=== PATIENT | male | born 1990 | race African-American/Black ===

== ENCOUNTER 2019-02-19 22:06 | Inpatient (IN) | payer OTHER ==
[~2019-02-19] VITALS: Ht 185.4 cm; Wt 93.0 kg
[2019-02-19] MEDS ORDERED: NS 1,000 ML IV ONE (22:15)
--- NOTE | 2019-02-19 22:28 | ECGEPIP ---
[facility] - ED Test Date: 2019-02-19 Pat Name: NICK HERR Department: Room: - Gender: Male Pathology Tech: ludmila : 1990 Requested By: MORA Chau Order Number: [id number] Reading MD: Hieu Wagner Measurements Intervals [place] Rate: 74 P: 66 LA: 165 QRS: 47 QRSD: 90 T: 31 QT: 367 QTc: 408 Interpretive Statements SINUS RHYTHM LEFT ATRIAL ENLARGEMENT BENIGN EARLY REPOLARIZATION NO PRIORS FOR COMPARISON NONSPECIFIC T-WAVE ABNORMALITY Electronically Signed on 02-19-2019 22:28:15 EDT by Hieu Wagner
[2019-02-19 22:29] LABS: BASO # 0.1 10^3/uL (0.0-0.2); EOS # 0.4 10^3/uL (0.0-0.50); EOS % 5.2 % (0.0-3.0); HEMATOCRIT 39.2 % (42.0-52.0); HEMOGLOBIN 13.3 g/dl (13.5-17.5); LYMPH # 2.1 10^3/uL (1.5-6.5); LYMPH % 30.6 % (24.0-44.0); MEAN CORPUSCULAR HEMOGLOBIN 31.1 pg (27.0-33.0); MEAN CORPUSCULAR HGB CONC 33.9 g/dl (32.0-36.5); MEAN CORPUSCULAR VOLUME 91.8 fl (80.0-96.0); MONO # 0.6 10^3/uL (0.0-0.8); NEUTROPHILS # 3.8 10^3/uL (1.8-7.7); NEUTROPHILS % 54.9 % (36.0-66.0); PLATELET COUNT, AUTOMATED 223 10^3/uL (150-450); RED BLOOD COUNT 4.27 10^6/uL (4.30-6.10)
[2019-02-19 22:48] LABS: OSMOLALITY SERUM 300 MOSM/KG (275-295)
[2019-02-19 23:11] LABS: ACETAMINOPHEN LEVEL < 2.0 UG/ML (10.0-30.0); ALBUMIN 3.3 GM/DL (3.2-5.2); ALT/SGPT 37 U/L (12-78); BILIRUBIN,DIRECT < 0.1 MG/DL (0.0-0.2); BILIRUBIN,TOTAL 0.1 MG/DL (0.2-1.0); BLOOD UREA NITROGEN 21 MG/DL (7-18); CALCIUM LEVEL 8.2 MG/DL (8.5-10.1); CARBON DIOXIDE LEVEL 27 MEQ/L (21-32); CHLORIDE LEVEL 110 MEQ/L (98-107); CPK CREATINE PHOSPHOKINASE 1430 U/L (39-308); CREATININE FOR GFR 1.32 MG/DL (0.70-1.30); ETHYL ALCOHOL (ETHANOL) < 0.003 % (0.000-0.010); GLOMERULAR FILTRATION RATE > 60.0 (>60); GLUCOSE, FASTING 128 MG/DL (70-100); POTASSIUM SERUM 3.5 MEQ/L (3.5-5.1); SALICYLATE LEVEL < 1.7 MG/DL (5.0-30.0); SODIUM LEVEL 145 MEQ/L (136-145); TOTAL PROTEIN 7.1 GM/DL (6.4-8.2)
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
[2019-02-20 01:21] LABS: AMPHETAMINES LEVEL URINE NEGATIVE (NEGATIVE); BARBITURATES URINE NEGATIVE (NEGATIVE); BENZODIAZEPINES URINE NEGATIVE (NEGATIVE); CANNABINOIDS URINE NEGATIVE (NEGATIVE); COCAINE METABOLITE URINE NEGATIVE (NEGATIVE); METHADONE URINE NEGATIVE (NEGATIVE); OPIATES URINE NEGATIVE (NEGATIVE); PHENCYCLIDINE URINE NEGATIVE (NEGATIVE)
[2019-02-20] MEDS ORDERED: DILUENT IV ONE (05:15)
[2019-02-20] MEDS ORDERED: NS IV ONE (05:15)
[2019-02-20] MEDS ORDERED: NICOTINE 7 MG/24 HR TRANSDERMAL TD SCH (09:00)
[2019-02-20] MEDS ORDERED: OLANZapine 5 MG TAB PO PRN (10:15)
[2019-02-20] MEDS ORDERED: ACETAMINOPHEN TAB 650MG DOSE (2X325MG) PO PRN (10:15)
[2019-02-20] MEDS ORDERED: MOM 30ML SUSPENSION UDC PO PRN (10:15)
[2019-02-20 11:07] VITALS: BP 130/82
[2019-02-20] MEDS: IBUPROFEN 600 MG TAB PO SCH ×3 (13:06→23:02)
--- NOTE | 2019-02-20 14:11 | HPEPDOC ---
[facility] Medical History & Physical Date of Admission Feb 20, 2019 Date of Service: Feb 20, 2019 History and Physical Chief complaint: Tried to comment suicide History of present illness: This is the 29-year-old male with no significant medical history, comes to the psychiatric unit and we have been consulted for medical reasons. The patient said that he tried to hang himself. States that he has a lot of stressors and suffers from depression, but does not take any medications. He currently has been admitted to the psychiatric facility and the management will be as per him. He denies any shortness of breath, any chest pa in, any headache. He states that he does not have any intentions of hurting himself or anybody else at this point of time. Family history. Hypertension. Social history. Occasional smoker. Denies any drug abuse. Denies any recreational drug use. Past medical history none except for depression. Past surgical history none as per patient Review of systems. Pertinent positive findings as per HPI and is negative PHYSICAL EXAMINATION: General: The patient is awake, alert, oriented x3, sitting up in the bed in no apparent distress. Head and Neck Exam: Extraocular muscles intact. Pupils equally round and reactive to light. Mucous membranes are moist. Neck is supple. There is no jugular venous distention (JVD). Cardiovascular: S1 and S2, regular rate. No real edema Respiratory: Clear auscultation Abdomen: Soft. Positive bowel sounds. Nontender. No organomegaly. Genitourinary: Deferred Musculoskeletal: Clubbing of the fingernails, no cyanosis was noted. 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 Power is 5/5 in all extremities. Vital Signs Date Time Temp Pulse Resp B/P (MAP) Pulse Ox O2 Delivery O2 Flow Rate FiO2 02/20/19 11:07 98.4 57 16 130/82 (98) 100 02/20/19 10:32 98.3 58 16 138/90 (106) 100 02/20/19 08:54 98.0 68 16 121/67 (85) 96 Room Air 02/20/19 04:00 55 14 112/57 (75) 100 Room Air 02/20/19 03:45 59 14 112/59 (76) 98 Room Air 02/20/19 03:30 57 14 110/54 (72) 99 Room Air 02/20/19 03:15 57 14 108/54 (72) 99 Room Air 02/20/19 03:00 55 14 110/53 (72) 99 Room Air 02/20/19 02:45 54 14 112/54 (73) 99 Room Air 02/20/19 02:30 66 14 115/58 (77) 99 Room Air 02/20/19 02:15 51 14 117/55 (75) 98 Room Air 02/20/19 02:00 58 14 118/58 (78) 99 Room Air 02/20/19 01:46 136/60 (85) 02/20/19 01:45 61 14 98 Room Air 02/20/19 01:30 58 14 118/59 (78) 98 Room Air 02/20/19 01:16 119/58 (78) 02/20/19 01:15 63 14 98 Room Air 02/20/19 01:00 67 14 106/54 (71) 98 Room Air 02/20/19 00:45 66 14 121/56 (77) 98 Room Air 02/20/19 00:30 64 14 111/56 (74) 98 Room Air 02/20/19 00:16 115/70 (85) 02/20/19 00:15 69 14 99 Room Air 02/20/19 00:01 125/60 (81) 02/20/19 00:00 73 14 98 Room Air 02/19/19 23:46 143/64 (90) 02/19/19 23:45 70 14 99 Room Air 02/19/19 23:30 75 14 148/65 (92) 98 Room Air 02/19/19 23:15 137/63 (87) 02/19/19 23:07 65 14 98 Room Air 02/19/19 22:52 134/74 (94) 02/19/19 22:51 75 14 99 Room Air 02/19/19 22:45 122/58 (79) 02/19/19 22:41 128/59 (82) 02/19/19 22:40 128/59 (82) 02/19/19 22:36 75 14 99 Room Air 02/19/19 22:30 133/64 (87) 02/19/19 22:21 75 100 02/19/19 22:20 98.1 73 18 130/59 (82) 98 Room Air 02/19/19 22:19 130/59 (82) Intake & Output 02/20/19 06:00 Intake Total 1000 ml Balance 1000 ml Laboratory Tests 02/19/19 22:19: White Blood Count 7.0, Red Blood Count 4.27L, Hemoglobin 13.3L, Hematocrit 39.2L, Mean Corpuscular Volume 91.8, Mean Corpuscular Hemoglobin 31.1, Mean Corpuscular Hemoglobin Concent 33.9, Red Cell Distribution Width 13.9, Platelet Count 223, Neutrophils (%) (Auto) 54.9, Lymphocytes (%) (Auto) 30.6, Monocytes (%) (Auto) 8.0H, Eosinophils (%) (Auto) 5.2H, Basophils (%) (Auto) 1.0, Neutrophils # (Auto) 3.8, Lymphocytes # (Auto) 2.1, Monocytes # (Auto) 0.6, Eos inophils # (Auto) 0.4, Basophils # (Auto) 0.1, Immature Granulocyte % (Auto) 0.3, Nucleated Red Blood Cells % (auto) 0.0, Sodium Level 145, Potassium Level 3.5, Chloride Level 110H, Carbon Dioxide Level 27, Anion Gap 8, Blood Urea Nitrogen 21H, Creatinine 1.32H, Glomerular Filtration Rate > 60.0, Fasting Glucose 128H, Osmolality 300H, Calcium Level 8.2L, Aspartate Amino Transf (AST/SGOT) 40H, Alanine Aminotransferase (ALT/SGPT) 37, Alkaline Phosphatase 75, Total Bilirubin 0.1L, Direct Bilirubin < 0.1, Total Creatine Kinase 1430H, Total Protein 7.1, Albumin 3.3, Albumin/Globulin Ratio 0.87L, Thyroid Stimulating Hormone (TSH) 3.440, Salicylates Level < 1.7L, Acetaminophen Level < 2.0L, Ethyl Alcohol Level < 0.003 02/20/19 00:41: Urine Color YELLOW, Urine Appearance CLEAR, Urine pH 6.0, Urine Specific [place] 1.030, Urine Protein NEGATIVE, Urine Glucose (UA) NEGATIVE, Urine Ketones NEGATIVE, Urine Blood NEGATIVE, Urine Nitrite NEGATIVE, Urine Bilirubin NEGATIVE, Urine Urobilinogen 2.0H, Urine Leukocyte Esterase NEGATIVE, Urine WBC (Auto) 0, Urine RBC (Auto) 3, Urine Hyaline Casts (Auto) 0, Urine Bacteria (Auto) NEGATIVE, Urine Squamous Epithelial Cells 0, Urine Mucus (Auto) SMALL, Urine Sperm (Auto) , Urine Amphetamines Screen NEGATIVE, Urine Benzodiazepines Screen NEGATIVE, Urine Opiates Screen NEGATIVE, Urine Methadone Screen NEGATIVE, Urine Barbiturates Screen NEGATIVE, Urine Phencyclidine Screen NEGATIVE, Urine Cocaine Metabolite Screen NEGATIVE, Urine Cannabinoids Screen NEGATIVE 02/20/19 04:14: Total Creatine Kinase 1528H 02/20/19 08:16: Total Creatine Kinase 1321H Current Medications Medications (Trade) Dose Ordered Sig/Calvin Route PRN Reason Start Time Stop Time Status Last Admin Dose Admin Ibuprofen (Advil) 600 mg Q6H PO 02/20/19 12:00 02/20/19 13:06 600 MG Medications reviewed Radiology reviewed Assessment and plan This is a 29-year-old male was been admitted to the psychiatric facility for suicide attempt. And we have been consulted for medical management. 1. Suicide attempt. Management is per psychiatry. 2. Elevated CPK. It has a flat trend. We'll monitor the renal function. Will order a urine drug toxicology Diet as per psychiatric We will continue to follow the patient Thank so much for consulting us on this patient Vital Signs Vital Signs Date Time Temp Pulse Resp B/P (MAP) Pulse Ox O2 Delivery O2 Flow Rate FiO2 02/20/19 11:07 98.4 57 16 130/82 (98) 100 02/20/19 08:54 Room Air Laboratory Data Labs 24H Laboratory Tests 2 02/19/19 22:19: Immature Granulocyte % (Auto) 0.3, White Blood Count 7.0, Red Blood Count 4.27L, Hemoglobin 13.3L, Hematocrit 39.2L, Mean Corpuscular Volume 91.8, Mean Corpuscular Hemoglobin 31.1, Mean Corpuscular Hemoglobin Concent 33.9, Red Cell Distribution Width 13.9, Platelet Count 223, Neutrophils (%) (Auto) 54.9, Lymphocytes (%) (Auto) 30.6, Monocytes (%) (Auto) 8.0H, Eosinophils (%) (Auto) 5.2H, Basophils (%) (Auto) 1.0, Neutrophils # (Auto) 3.8, Lymphocytes # (Auto) 2.1, Monocytes # (Auto) 0.6, Eosinophils # (Auto) 0.4, Basophils # (Auto) 0.1, Nucleated Red Blood Cells % (auto) 0.0, Anion Gap 8, Glomerular Filtration Rate > 60.0, Osmolality 300H, Calcium Level 8.2L, Aspartate Amino Transf (AST/SGOT) 40H, Alanine Aminotransferase (ALT/SGPT) 37, Alkaline Phosphatase 75, Total Bilirubin 0.1L, Direct Bilirubin < 0.1, Total Creatine Kinase 1430H, Total Protein 7.1, Albumin 3.3, Albumin/Globulin Ratio 0.87L, Thyroid Stimulating Hormone (TSH) 3.440, Salicylates Level < 1.7L, Acetaminophen Level < 2.0L, Ethyl Alcohol Level < 0.003 02/20/19 00:41: Urine Color YELLOW, Urine Appearance CLEAR, Urine pH 6.0, Urine Specific [place] 1.030, Urine Protein NEGATIVE, Urine Glucose (UA) NEGATIVE, Urine Ketones NEGATIVE, Urine Blood NEGATIVE, Urine Nitrite NEGATIVE, Urine Bilirubin NEGATIVE, Urine Urobilinogen 2.0H, Urine Leukocyte Esterase NEGATIVE, Urine WBC (Auto) 0, Urine RBC (Auto) 3, Urine Hyaline Casts (Auto) 0, Urine Bacteria (Auto) NEGATIVE, Urine Squamous Epithelial Cells 0, Urine Mucus (Auto) SMALL, Urine Sperm (Auto) , Urine Amphetamines Screen NEGATIVE, Urine Benzodiazepines Screen NEGATIVE, Urine Opiates Screen NEGATIVE, Urine Methadone Screen NEGATIVE, Urine Barbiturates Screen NEGATIVE, Urine Phencyclidine Screen NEGATIVE, Urine Cocaine Metabolite Screen NEGATIVE, Urine Cannabinoids Screen NEGATIVE 02/20/19 04:14: Total Creatine Kinase 1528H 02/20/19 08:16: Total Creatine Kinase 1321H CBC/BMP Laboratory Tests 02/19/19 22:19 Red Blood Count 4.27 L, Mean Corpuscular Volume 91.8, Mean Corpuscular Hemoglobin 31.1, Mean Corpuscular Hemoglobin Concent 33.9, Red Cell Distribution Width 13.9, Neutrophils (%) (Auto) 54.9, Lymphocytes (%) (Auto) 30.6, Monocytes (%) (Auto) 8.0 H, Eosinophils (%) (Auto) 5.2 H, Basophils (%) (Auto) 1.0, Neutrophils # (Auto) 3.8, Lymphocytes # (Auto) 2.1, Monocytes # (Auto) 0.6, Eosinophils # (Auto) 0.4, Basophils # (Auto) 0.1 Home Medications No Active Prescriptions or Reported Meds Allergies Coded Allergies: No Known Allergies (Unverified , 02/19/19) A-FIB/CHADSVASC A-FIB History Current/History of A-Fib/PAF?: No Current PO Anticoag Therapy: No AILYN MARINELLI MD Feb 20, 2019 14:11
[2019-02-20 18:00] VITALS: BP 127/75
[2019-02-21] MEDS: IBUPROFEN 600 MG TAB PO SCH ×3 (05:29→17:49)
[2019-02-21 06:00] VITALS: BP 138/88
--- NOTE | 2019-02-21 07:59 | MHHPEPDOC ---
[facility] History & Physical History and Physical DATE OF ADMISSION: Feb 20, 2019 at 10:08 Chief Complaint Suicide attempt by hanging. 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 Patient was noted to be living alone and was fairly isolative reportedly prior to admission. He was assessed in the ER and required rehydration as he had had an elevated CK level from his [facility] injury. The patient has met with where he describes having significant depression prior to his admission for several months where he become increasingly more guilty feeling and had increasing difficulty with his ability to socialize. He reports that he feels remorseful about the attempt. He describes that psychosocial stressors in the form of his pending divorce from his has caused him to become more regretful. Review Of Systems Depression: As above. Anxiety: The patient denies any excessive worry associated with physical symptoms. They deny any experience of discreet panic in the past. Kesha: The patient denies any episodes of euphoria/dysphoria associated with decreased need for sleep, hedonism, talkatively or impulsivity lasting longer than 5 days. Psychotic: The patient denies any experiences of auditory or visual hallucinations. They deny any episodes of paranoia or delusional thinking in the past Trauma: The patient denies any traumatic events associated with nightmares or intrusive thoughts. Borderline: Not screened at this time. Past Psychiatric History The patient reports no history of psychiatric admissions, medication trials or current follow up. The patient does admit to previous suicidal behavior in the past such as suicidal gestures the last three months. Allergies Please see below. Family Psychiatric History The patient denies/is unaware any history of mental health history including addictions and suicide. Social History The patient grew up in [place] where he reports a generally uneventful childhood with no abuse. He reports that his parents at age 9 where he then had a stepfather, but reported that this was really difficult for him. 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 They got at 21. Subsequently, they became two years later when he became active duty and he subsequently lives alone on [address] with few social supports at this time. He reports no significant legal or occupational problems. Substance Abuse History The patient denies any excessive alcohol use, tobacco or illicit drug use, denies history of substance use treatment. Medical History Patient has no significant past medical history. Mental Status Examination General: Well dressed with good hygiene Speech: Spontaneous and fluid Thought processes: Possibly evasive, indirectly answers questions MSK: Smooth and coordinated gait, no signs of tremors or involuntary orofacial movements Thought content: Remorse Abstract reasoning, and computation: Intact Description of associations: Intact Description of abnormal or psychotic thoughts: Denies any suicidal or homicidal ideation. Denies any auditory or visual hallucinations. Does not appear to be responding to internal stimuli. Does not appear to be endorsing any bizarre or paranoid ideation. Judgment: poor Insight: poor Orientation: Alert and orientated 3 Cognition: Grossly normal Recent and remote memory: Intact Attention span and concentration: Intact Fund of knowledge: Adequate Mood: "okay" Affect: Dysthymic with a constricted range Diagnoses Major depressive disorder, recurrent, severe without psychotic features, currently active: Unstable Assessment and Plan The patient, a 29-year-old man, with a history of psychosocial stressors and fulminating depression presents after a significant suicide attempt. He has had no psychiatric treatment in the past, but appears to have entered into a fairly complex and difficult state to manage. Disposition The patient will need further inpatient stay likely greater that two midnights in order to treat his depression and secure his safety due to the severity of a suicide attempt. Problem List 1. Depressed mood 2. Suicide 3. Safety Initial Treatment Plan 1. Patient was admitted on a 9.39 legal status. 2. Complete history was obtained. 3. With patients permission, family will be contacted and database will be expanded. 4. Patients medication regimen will be reviewed and changed accordingly. 5. Patient will be provided with protected environment. 6. Patient will be treated with individual, group, and milieu therapies. 7. Patient will receive supportive psych-education. 8. Discharge planning will commence immediately. 9. Outpatient follow-up treatment will be strongly recommended. 10. start sertraline 50mg daily The patient was informed of the possible side effects of antidepressant medications, namely GI upset, weight gain and sexual dysfunction. They were additionally warned of rare complications of Serotonin syndrome, especially in combination with other antidepressants and pain medications such as tramadol and fentyl. They were advised that people under 24 years old have a warning for suicidal thoughts. Estimated Length Of Stay Five days. Time Spent 45 minutes. Vital Signs Vital Signs Date Time Temp Pulse Resp B/P (MAP) Pulse Ox O2 Delivery O2 Flow Rate FiO2 02/21/19 06:00 99.1 64 16 138/88 (105) 02/20/19 11:07 100 02/20/19 08:54 Room Air Laboratory Data 24H Labs Laboratory Tests 2 02/20/19 08:16: Total Creatine Kinase 1321H 02/20/19 19:58: Total Creatine Kinase 1265H Medications No Active Prescriptions or Reported Meds Allergies Coded Allergies: No Known Allergies (Unverified , 02/19/19) A-FIB/CHADSVASC A-FIB History Current/History of A-Fib/PAF?: No Current PO Anticoag Therapy: No PANCHITO KAUFFMAN DO Feb 21, 2019 07:59
--- NOTE | 2019-02-21 12:08 | IPNPDOC ---
Text Note Date of Service The patient was seen on 02/21/19. NOTE Patient seen and examined by me. In no apparent distress. Denies any muscle aches or any urinary issues. Denies any ideation of harming himself or anybody else. PHYSICAL EXAMINATION: General: The patient is awake, alert, oriented x3, sitting up in the bed in no apparent distress. Head and Neck Exam: Extraocular muscles intact. Pupils equally round and reactive to light. Mucous membranes are moist. Neck is supple. There is no jugular venous distention (JVD). Cardiovascular: S1 and S2, regular rate. No real edema Respiratory: Clear auscultation Abdomen: Soft. Positive bowel sounds. Nontender. No organomegaly. Genitourinary: Deferred Musculoskeletal: Clubbing of the fingernails, no cyanosis was noted. Central Nervous System (GAS LINE REPAIRER): No focal deficit. Power is 5/5 in all extremities. Assessment and plan This is a 29-year-old male was been admitted to the psychiatric facility for suicide attempt. And we have been consulted for medical management. 1. Suicide attempt. Management is per psychiatry. 2. Elevated CPK. It has a flat trend. We'll monitor the renal function. Urine drug toxicology reviewed Diet as per psychiatric We will continue to follow the patient Thank so much for consulting us on this patient VS,Fishbone, I+O VS, Fishbone, I+O Vital Signs Date Time Temp Pulse Resp B/P (MAP) Pulse Ox O2 Delivery O2 Flow Rate FiO2 02/21/19 06:00 99.1 64 16 138/88 (105) 02/20/19 11:07 100 02/20/19 08:54 Room Air I&O- Last 24 Hours up to 6 AM 02/21/19 06:00 Intake Total 2820 ml Balance 2820 ml AILYN MARINELLI MD Feb 21, 2019 12:08
[2019-02-21] MEDS: SERTRALINE HCL 50 MG TAB PO SCH (12:18)
[2019-02-21 18:20] VITALS: BP 155/72
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
[2019-02-22] MEDS: IBUPROFEN 600 MG TAB PO SCH ×5 (06:00→23:06)
[2019-02-22 06:34] VITALS: BP 122/66
[2019-02-22] MEDS: SERTRALINE HCL 50 MG TAB PO SCH (08:54)
[2019-02-22 09:09] LABS: ALBUMIN 3.3 GM/DL (3.2-5.2); ALT/SGPT 36 U/L (12-78); BILIRUBIN,TOTAL 0.3 MG/DL (0.2-1.0); BLOOD UREA NITROGEN 14 MG/DL (7-18); CALCIUM LEVEL 8.5 MG/DL (8.5-10.1); CARBON DIOXIDE LEVEL 28 MEQ/L (21-32); CHLORIDE LEVEL 109 MEQ/L (98-107); CPK CREATINE PHOSPHOKINASE 761 U/L (39-308); CREATININE FOR GFR 1.03 MG/DL (0.70-1.30); GLOMERULAR FILTRATION RATE > 60.0 (>60); GLUCOSE, FASTING 96 MG/DL (70-100); POTASSIUM SERUM 4.1 MEQ/L (3.5-5.1); SODIUM LEVEL 143 MEQ/L (136-145); TOTAL PROTEIN 6.9 GM/DL (6.4-8.2)
[2019-02-22 18:09] VITALS: BP 101/71
[2019-02-23] MEDS: IBUPROFEN 600 MG TAB PO SCH ×3 (05:47→15:13)
[2019-02-23 06:05] VITALS: BP 139/77
--- NOTE | 2019-02-23 08:24 | IPNPDOC ---
Text Note Date of Service The patient was seen on 02/23/19. NOTE Patient seen and examined by me. In no apparent distress. Denies any muscle aches or any urinary issues. Denies any ideation of harming himself or anybody else. PHYSICAL EXAMINATION: General: The patient is awake, alert, oriented x3, sitting up in the bed in no apparent distress. Head and Neck Exam: Extraocular muscles intact. Pupils equally round and reactive to light. Mucous membranes are moist. Neck is supple. There is no jugular venous distention (JVD). Cardiovascular: S1 and S2, regular rate. No real edema Respiratory: Clear auscultation Abdomen: Soft. Positive bowel sounds. Nontender. No organomegaly. Genitourinary: Deferred Musculoskeletal: Clubbing of the fingernails, no cyanosis was noted. Central Nervous System (STOCK DEALER): No focal deficit. Power is 5/5 in all extremities. Assessment and plan This is a 29-year-old male was been admitted to the psychiatric facility for suicide attempt. And we have been consulted for medical management. 1. Suicide attempt. Management is per psychiatry. 2. Elevated CPK. It has a flat trend and now trending down. Urine drug toxicology reviewed Diet as per psychiatric Thank so much for consulting us on this patient VS,Fishbone, I+O VS, Fishbone, I+O Vital Signs Date Time Temp Pulse Resp B/P (MAP) Pulse Ox O2 Delivery O2 Flow Rate FiO2 02/23/19 06:05 99.2 67 16 139/77 (97) 02/20/19 11:07 100 02/20/19 08:54 Room Air AILYN MARINELLI MD Feb 23, 2019 08:24
[2019-02-23] MEDS: SERTRALINE HCL 25 MG TABLET PO SCH (09:38)
--- NOTE | 2019-02-23 12:53 | MHIPNPDOC ---
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 Patient was noted to be living al one and was fairly isolative reportedly prior to admission. He was assessed in the ER and required rehydration as he had had an elevated CK level from his crush injury. Interval History The patient was met with today, where he described that he was feeling much better after multiple visitations and that the sertraline was fairly helpful. He denies any side effects from the sertraline, reporting that he's tolerating it well. He reports no symptoms and his CK and renal function are normalizing. The patient reports that he has been socializing more and has been much more active on the unit. Review Of Systems Denies any symptoms of depression, fatigue, loss of interest or concentration focus deficits. Denies any specific anxiety. Psychotherapy None on this visit. Vital Signs Reviewed. Mental Status Examination General: Well dressed with good hygiene Speech: Spontaneous and fluid Thought processes: Linear MSK: Smooth and coordinated gait, no signs of tremors or involuntary orofacial movements Thought content: Remorse Abstract reasoning, and computation: Intact Description of associations: Intact Description of abnormal or psychotic thoughts: Denies any suicidal or homicidal ideation. Denies any auditory or visual hallucinations. Does not appear to be responding to internal stimuli. Does not appear to be endorsing any bizarre or paranoid ideation. Judgment: Improved Insight: Improved Orientation: Alert and orientated 3 Cognition: Grossly normal Recent and remote memory: Intact Attention span and concentration: Intact Fund of knowledge: Adequate Mood: "okay" Affect: Euthymic with a full range Diagnoses Major depressive disorder, recurrent, severe without psychotic features, in partial remission. Assessment and Plan The patient, a 29-year-old man, with a history of psychosocial stressors and fulminating depression presents after a significant suicide attempt. He has had no psychiatric treatment in the past, but appears to have entered into a fairly complex and difficult state to manage. Continue sertraline 75 mg daily. No reason to repeat CBC and CMP as CK is normalizing with normal renal values. Likely ready for discharge on Tuesday. Disposition The patient will need further inpatient time in order to arrange for a safe discharge back to [facility], which is closed on Tuesday, but will reopen Tuesday after the holiday. Time Spent 15 minutes. Vital Signs Vital Signs Date Time Temp Pulse Resp B/P (MAP) Pulse Ox O2 Delivery O2 Flow Rate FiO2 02/23/19 06:05 99.2 67 16 139/77 (97) 02/20/19 11:07 100 02/20/19 08:54 Room Air Current Medications Current Medications Acetaminophen (Tylenol Tab) 650 mg Q6HP PRN PO HEADACHE or DISCOMFORT; Start 02/20/19 at 10:15; Status Cancel Home Med (Med Rec Complete!) ASDIRECTED XX ; Start 02/20/19 at 10:45; Stop 02/20/19 at 10:45; Status DC Ibuprofen (Advil) 600 mg Q6H PO Last administered on 02/23/19at 05:47; Start 02/20/19 at 12:00 Magnesium Hydroxide (Milk Of Magnesia) 30 ml DAILYPRN PRN PO CONSTIPATION; Start 02/20/19 at 10:15 Nicotine (Nicoderm Cq 7 Mg) 1 patch DAILY TD ; Start 02/20/19 at 09:00; Status Cancel Olanzapine (ZyPREXA) 5 mg Q4HP PRN PO AGITATION; Start 02/20/19 at 10:15 Sertraline HCl (Zoloft) 50 mg DAILY PO Last administered on 02/22/19at 08:54; Start 02/21/19 at 09:00; Stop 02/22/19 at 09:37; Status DC Sertraline HCl (Zoloft) 75 mg DAILY PO Last administered on 02/23/19at 09:38; Start 02/23/19 at 09:00 Allergies Coded Allergies: No Known Allergies (Unverified , 02/19/19) PANCHITO KAUFFMAN DO Feb 23, 2019 10:24
[2019-02-23 18:00] VITALS: BP 128/69
[2019-02-24] MEDS: IBUPROFEN 600 MG TAB PO SCH ×5 (00:03→23:06)
[2019-02-24 06:35] VITALS: BP 139/62
[2019-02-24] MEDS: SERTRALINE HCL 25 MG TABLET PO SCH (09:25)
--- NOTE | 2019-02-24 12:29 | MHIPN ---
DATE: 02/24/2019 SUBJECTIVE: "I am happy that I did not ". 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 He attends the groups and intends to continue going to the groups. MENTAL STATUS EXAMINATION: Well groomed. Cooperative. Made good eye contact. Speech spontaneous. Rate, rhythm and volume are good. Mood is mildly depressed. Affect is constricted. Thought process linear, goal directed. Thought content: Denied any delusions. Denied any suicidal or homicidal ideas. Cognition: Alert, oriented to time, place and person. His insight and judgment are fair. VITAL SIGNS: Temperature 98.8, pulse 55, respiratory rate 16, blood pressure 139/62. MEDICATIONS: - Sertraline 75 mg daily - olanzapine 5 mg every 4 hours as needed LABS: Hematology within normal limits. Chemistry within normal limits. Toxicology was negative. DIAGNOSES: Depressive disorder, unspecified. Rule out major depressive disorder. PLAN: The patient needs further stabilization. Still mildly depressed. ESTIMATED LENGTH OF STAY: 3-4 days.
[2019-02-24 18:01] VITALS: BP 151/76
[2019-02-25 06:00] VITALS: BP 126/78
[2019-02-25] MEDS: IBUPROFEN 600 MG TAB PO SCH ×4 (06:00→23:03)
[2019-02-25] MEDS: SERTRALINE HCL 25 MG TABLET PO SCH (09:22)
[2019-02-25 18:00] VITALS: BP 133/79
[2019-02-26] MEDS: IBUPROFEN 600 MG TAB PO SCH ×2 (05:36→11:44)
[2019-02-26 06:31] VITALS: BP 116/66
[2019-02-26] MEDS: SERTRALINE HCL 25 MG TABLET PO SCH (08:43)
[2019-02-26] MEDS ORDERED: SERT25TA88 PO (10:55)
--- NOTE | 2019-02-26 12:15 | MHDSPDOC ---
[facility] Discharge Summary Discharge Summary DATE OF ADMISSION: Feb 20, 2019 at 10:08 DATE OF DISCHARGE: 02/26/19 Discharge Jose Orellana Age 29 Male Date of : 1990 Date of Service: 02/26/2019 Diagnoses Major depressive disorder, severe, in complete remission. 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 Patient was noted to be living alone and was fairly isolative reportedly prior to admission. He was assessed in the ER and required rehydration as he had had an elevated CK level from his crush injury. Consultants Involved Hospitalist screening. Treatment and Progress On The Unit The patient was admitted to the inpatient unit after a suicide attempt. Initially, his CK was monitored where it trended down and eventually it normalized with no impairment on his renal function. He was started on a low dose of sertraline 25 mg daily, subsequently titrated up to 75 mg daily of sertraline, which he did fairly well on. Therapeutic socialization as well as multiple visitors improved the patient's mood where his depression symptoms went into remission. He was noted to be bright and engaged on the unit, enjoying the atmosphere and eventually was ready for discharge after several days of demonstrating no safety concerns and being able to attend to his needs with fairly good insight into the events that led to his admission. Discharge Assessment The patient is a 29-year-old man with a history of severe depression, presents after a suicide attempt. He was effectively treated with an SSRI. He has no previous psychiatric history and was able to resolve the symptoms sufficiently while in the unit. Mental Status Examination General: Well dressed with good hygiene Speech: Spontaneous and fluid Thought processes: Linear and logical MSK: Smooth and coordinated gait, no signs of tremors or involuntary orofacial movements Thought content: Future orientated Abstract reasoning, and computation: Intact Description of associations: Intact Description of abnormal or psychotic thoughts: Denies any suicidal or homicidal ideation. Denies any auditory or visual hallucinations. Does not appear to be responding to internal stimuli. Does not appear to be endorsing any bizarre or paranoid ideation. Judgment: fair Insight: fair Orientation: Alert and orientated 3 Cognition: Grossly normal Recent and remote memory: Intact Attention span and concentration: Intact Fund of knowledge: Adequate Mood: "okay" Affect: Euthymic with a full range Follow Up The social work team worked during the predischarge meeting in order to evaluate for further issues of lethality address them fully before discharge. They worked on safety planning with the patient's family members in order to ensure that the patient will have a safe and effective discharge. The amount of time spent in the coordination of care for this patient was approximately 30 minutes. Vital Signs/I&Os Vital Signs Date Time Temp Pulse Resp B/P (MAP) Pulse Ox O2 Delivery O2 Flow Rate FiO2 02/26/19 06:31 99.6 58 18 116/66 (83) 02/24/19 06:35 100 02/20/19 08:54 Room Air Medications Scheduled Sertraline HCl (Sertraline HCl) 25 Mg Tablet, 75 MG PO DAILY for mood for 7 Days, #21 Allergies Coded Allergies: No Known Allergies (Unverified , 02/19/19) PANCHITO KAUFFMAN DO Feb 26, 2019 12:15
== END 2019-02-26 13:05 | disposition home or self-care (01) | DRG 881 ==
LOC: EDBD 22:06 → M ED 22:06 → M ED INP 02-20 10:08 → M PSY 02-20 11:01
PROVIDERS: ADMIT Psychiatry & Neurology Addiction Medicine; ATTEND Psychiatry & Neurology Addiction Medicine
DX: F32.9 Major depressive disorder, single episode, unspecified (principal); R45.851 Suicidal ideations

== ENCOUNTER 2019-10-24 07:35 | Day surgery (SDC) | payer OTHER ==
[~2019-10-24] VITALS: Ht 190.5 cm; Wt 98.0 kg
[~2019-10-24 07:35] MED LIST: SERT25TA21 PO
[2019-10-24] MEDS ORDERED: MIDAZOLAM INJ 2 MG/2 ML VIAL (J2250) As Ordered ONE (08:25)
[2019-10-24] MEDS ORDERED: dexameTHASONE 4 MG/ML 1ML VIAL (J1100) As Ordered ONE ×2 (08:26→08:37)
[2019-10-24] MEDS ORDERED: fentaNYL 100 MCG/2 ML INJECTION (J3010) As Ordered ONE (08:26)
[2019-10-24] MEDS ORDERED: propofoL 200 MG/20 ML VIAL As Ordered ONE ×2 (08:26→09:51)
[2019-10-24] MEDS ORDERED: LIDOCAINE 2% INJ 100 MG/5 ML SDV (FOR ANES.) As Ordered ONE (08:26)
[2019-10-24] MEDS ORDERED: BUPIVACAINE HCL 0.5% 10 ML VIAL As Ordered ONE (08:37)
[2019-10-24] MEDS ORDERED: LIDOCAINE 1% MDV 20ML VIAL As Ordered ONE (08:37)
[2019-10-24] MEDS ORDERED: ceFAZolin SOD 2 GM in IV 1 EA IV ONE (08:45)
[2019-10-24] MEDS ORDERED: ONDANSETRON 4MG/2ML VIAL (J2405) As Ordered ONE (10:02)
[2019-10-24] MEDS ORDERED: ACETAMINOPHEN 1000MG 100ML IV BTL (OFIRMEV) (J0131 PER 10MG) As Ordered ONE (10:02)
[2019-10-24] MEDS ORDERED: KETOROLAC 60 MG/2 ML VIAL (J1885) As Ordered ONE (10:02)
[2019-10-24] MEDS ORDERED: oxyCODONE 5MG TAB PO PRN (11:15)
[2019-10-24] MEDS ORDERED: fentaNYL 100 MCG/2 ML INJECTION (J3010) IV PRN (11:15)
[2019-10-24] MEDS ORDERED: ONDANSETRON 4MG/2ML VIAL (J2405) IV PRN (11:15)
[2019-10-24] MEDS ORDERED: HYDROMORPHONE HCL 0.5 MG/ 0.5 ML SYRINGE (J1170 PER 1) IV PRN (11:15)
[2019-10-24] MEDS ORDERED: LR 1,000 ML IV SCH (11:15)
[2019-10-24 12:50] VITALS: BP 120/68
--- NOTE | 2019-10-25 21:39 | RO ---
DATE OF PROCEDURE: 10/24/2019 PREPROCEDURE DIAGNOSIS: Left chronic ankle sprain with ligament rupture. POSTPROCEDURE DIAGNOSIS: Left chronic ankle sprain with ligament rupture. PROCEDURE: Left lateral ankle ligament repair with internal brace. SURGEON: Daniel Rosales DPM WOOD FINISHER: None. ANESTHESIA: General LMA anesthesia with preoperative injection of 20 mL of a 1:1 mixture of 1% lidocaine plain and 0.50% Marcaine plain. ESTIMATED BLOOD LOSS: Minimal. MATERIALS: Arthrex FiberTak 1.3 mm FiberWire SutureTape times two and Arthrex internal brace, #3-0 and #4-0 Vicryl, #4-0 nylon. INJECTABLES: 1 mL Decadron, 4 mg per mL. COMPLICATIONS: None. CONDITION: Stable. Jose Orellana is a 29-year-old male who presents to [facility] with complaints of chronic ankle sprain. He has undergone conservative treatments without relief and had MRI which showed complete rupture of the anterior talofibular ligament (ATFL). Decision was made to bring him to the operating room for surgical repair. The patient's side and site were identified and marked in the preoperative holding area. Consent was reviewed and obtained. All risks, complications, and alternatives to the procedure were explained to the patient in detail and all questions were answered. DESCRIPTION OF PROCEDURE: The patient was brought to the operating room, placed on the operating room table in supine position, general LMA anesthesia was delivered by the anesthesia team. Preoperative injection of 20 mL of a 1:1 mixture of 1% lidocaine plain and 0.50% Marcaine plain were injected into the left foot and ankle. The foot was prepped and draped in the normal sterile fashion. A tourniquet was applied to the left ankle and inflated at 300 mmHg. Curvilinear incision was made over the lateral ankle and carried through with a #15 blade. Dissection was carried down until the ankle joint capsule was identified. Bovie was used to maintain hemostasis. On inspection, the lateral capsule and the anterior talofibular ligament were with heavy scar tissue. There was full rupture of the ligament off the talus. There was a bone spur over the dorsolateral aspect of the talus. This was removed with a rongeur and smoothed with a rasp and then irrigated with saline. The remaining ATFL was reflected from the distal fibula. Following this, one FiberTak suture anchor was used into the distal fibula to reattach the remaining portions of the ATFL, which were on the talus back to the fibula. Next, the internal brace was inserted into the talus, and this was then inserted under appropriate tension into the fibula, per marketing admin protocol. Following this, a second FiberTakwas inserted into the talus to secure the portions of the ATFL that were adhered to the fibula into the talus. Good tension was noted with no further significant laxity with negative anterior drawer sign after repair. The capsule was repaired with #3-0 Vicryl. Some portions of the retinaculum were used to augment the repair using #3-0 Vicryl. Subcutaneous closure with #4-0 Vicryl and skin closure with #4-0 nylon. Sterile dressing and posterior splint were applied, tourniquet was deflated, and the patient was brought to the post-anesthesia care unit (PACU), vital signs stable, neurovascular status intact. He will be non-weightbearing with crutches. Will followup in the office in 2 days. Edited 10/25/2019 samina QUINN
== END 2019-10-24 13:05 | disposition home or self-care (01) ==
LOC: M SDC 07:35
PROVIDERS: ATTEND Podiatrist Foot & Ankle Surgery
DX: S93.492A Sprain of other ligament of left ankle, initial encounter (principal); X58.XXXA Exposure to other specified factors, initial encounter; Y92.89 Other specified places as the place of occurrence of the external cause; Y93.9 Activity, unspecified; Y99.9 Unspecified external cause status; F41.9 Anxiety disorder, unspecified; F32.9 Major depressive disorder, single episode, unspecified; Z79.899 Other long term (current) drug therapy
CPT/HCPCS: 27698; 97530; C1713; J0131; J0690; J1100; J1885; J2250; J2405; J3010